=== PATIENT | male | born 1955 | race Caucasian/White ===

== ENCOUNTER 2024-07-26 06:37 | Inpatient (IN) | payer MEDICARE, OTHER ==
[~2024-07-26] VITALS: Ht 167.6 cm; Wt 75.3 kg
[2024-07-26] MEDS ORDERED: FOLI0.8T23 PO (06:54)
[2024-07-26] MEDS ORDERED: MIDO10TA PO (06:54)
[2024-07-26] MEDS ORDERED: CINA30TA2 PO (06:54)
[2024-07-26] MEDS ORDERED: RIVA15TA PO (06:54)
[2024-07-26] MEDS ORDERED: CETI10CA8 PO (06:54)
[2024-07-26] MEDS ORDERED: GABA-532 PO (06:54)
[2024-07-26] MEDS ORDERED: SOTA80TA26 PO (06:54)
[2024-07-26] MEDS ORDERED: CLOP75TA33 PO (06:54)
[2024-07-26] MEDS ORDERED: ATOR80TA PO (06:54)
[2024-07-26] MEDS ORDERED: PANT40TA49 PO (06:54)
[2024-07-26] MEDS ORDERED: TRAM50TA2 PO (06:54)
[2024-07-26] MEDS ORDERED: CYCL5TAB PO (06:54)
[2024-07-26] MEDS: IV NORMAL SALINE 500 ML BAG IV ONE (07:00)
[2024-07-26 08:13] LABS: ETHANOL < 3 MG/DL (0-10)
[2024-07-26 08:25] LABS: BASOPHILS # (AUTO) 0.1 K/UL (0.0-0.2); BASOPHILS % (AUTO) 0.8 % (0.0-2.0); EOSINOPHILS # (AUTO) 0.6 K/uL (0.0-0.7); EOSINOPHILS % (AUTO) 5.9 % (0.0-7.0); HEMATOCRIT 41.4 % (36.7-47.1); HEMOGLOBIN 13.5 g/dL (12.5-16.3); LYMPHOCYTES # (AUTO) 1.5 K/uL (0.8-4.8); LYMPHOCYTES % (AUTO) 14.5 % (20.5-51.5); MEAN CORPUSCULAR HEMOGLOBIN 32.7 uug (23.8-33.4); MEAN CORPUSCULAR HGB CONC 33 g/dL (32.5-36.3); MEAN CORPUSCULAR VOLUME 100.4 fL (73.0-96.2); MONOCYTES # (AUTO) 1.1 K/uL (0.1-1.30); MONOCYTES % (AUTO) 10.7 % (0.0-11.0); NEUTROPHILS # (AUTO) 6.9 K/uL (1.8-8.9); NEUTROPHILS % (AUTO) 68.1 % (38.5-71.5); PLATELET COUNT (AUTO) 237 K/uL (152-348); RED BLOOD CELL COUNT(AUTO) 4.13 MIL/uL (4.06-5.63); RED CELL DISTRIBUTION WIDTH 14.1 % (12.1-16.2); WHITE BLOOD COUNT (AUTO) 10.1 K/uL (3.6-10.2)
[2024-07-26 08:29] LABS: DIFFERENTIAL COMMENT 1
[2024-07-26 08:32] LABS: CALCIUM 7.6 mg/dL (8.5-10.1); CARBON DIOXIDE 23 mmol/L (21-32); CHLORIDE 101 mmol/L (98-107); GLUCOSE 99 mg/dL (74-106); SODIUM SERUM 143 mmol/L (136-145)
[2024-07-26 08:38] LABS: ALANINE AMINOTRANSFERASE 26 U/L (16-63); ALBUMIN 3.6 g/dL (3.4-5.0); ALKALINE PHOSPHATASE 227 U/L (50-136); ASPARTATE AMINOTRANSFERASE 19 U/L (15-37); BILIRUBIN,DIRECT 0.1 mg/dL (0.0-0.2); BILIRUBIN,TOTAL 0.6 mg/dL (0.2-1.0); TOTAL PROTEIN, SERUM 7.9 g/dL (6.4-8.2)
[2024-07-26 08:39] LABS: CREATININE 12.3 mg/dL (0.6-1.3); UREA NITROGEN, BLOOD 90 mg/dL (7-18)
[2024-07-26] MEDS ORDERED: CALCIUM GLUCONATE 1 GM/10 ML VIAL IV ONE (08:48)
[2024-07-26] MEDS ORDERED: SODIUM BICARBONATE 8.4% 50 MEQ/50 ML DISP.SYRIN IV ONE (08:49)
[2024-07-26] MEDS ORDERED: CALCIUM CHLORIDE 1 GM/10 ML DISP.SYRIN IVP ONE (08:54)
[2024-07-26] MEDS: SODIUM BICARBONATE 8.4% 50 MEQ/50 ML DISP.SYRIN IV ONE (08:59)
[2024-07-26] MEDS: CALCIUM CHLORIDE 1 GM/10 ML DISP.SYRIN IVP ONE (09:00)
[2024-07-26 09:05] VITALS: O2SAT 99
[2024-07-26] MEDS: ALBUTEROL SULFATE 2.5 MG/3 ML NEBU NEB ONE (09:05)
[2024-07-26] MEDS ORDERED: ALBUTEROL SULFATE 2.5 MG/3 ML NEBU ONE (09:08)
[2024-07-26 09:46] LABS: THYROID STIMULATING HORMONE 1.32 mIU/mL (0.358-3.740)
[2024-07-26 09:47] LABS: MAGNESIUM 2.5 mg/dL (1.8-2.4); PHOSPHOROUS 6.1 mg/dL (2.5-4.9)
[2024-07-26 10:05] VITALS: O2SAT 100; O2SAT 99
[2024-07-26] MEDS ORDERED: SOTA80TA PO (11:31)
[2024-07-26 12:00] VITALS: BP 111/61; TEMP 98.7; O2SAT 98
[2024-07-26] MEDS ORDERED: GABA300C PO (12:22)
[2024-07-26] MEDS ORDERED: LORAZEPAM 2 MG/1 ML VIAL IV PRN ×3 (12:30→12:58)
[2024-07-26] MEDS ORDERED: NITR0.4T48 SL (12:33)
[2024-07-26] MEDS ORDERED: ACET-2605 PO (12:38)
[2024-07-26] MEDS ORDERED: SEVE800T8 PO (13:39)
[2024-07-26 15:55] VITALS: BP 116/42; TEMP 98.3; O2SAT 96
[2024-07-26] MEDS ORDERED: Medication Not On Formulary EA (Midodrine Hcl 10 MG) PO PRN (18:00)
[2024-07-26] MEDS ORDERED: NITROGLYCERIN 0.4 MG/TAB BOTTLE SL PRN (18:00)
[2024-07-26] MEDS: RIVAROXABAN 15 MG TABLET PO SCH (18:25)
[2024-07-26] MEDS: GABAPENTIN 300 MG CAPSULE PO SCH (18:25)
[2024-07-26 20:35] VITALS: BP 116/47; TEMP 97.8; O2SAT 97
[2024-07-26] MEDS ORDERED: DOCUSATE SODIUM 250 MG CAPSULE PO SCH (21:00)
[2024-07-26] MEDS ORDERED: levETIRAcetam 250 MG TABLET PO SCH (21:00)
[2024-07-26] MEDS: LACOSAMIDE 200 MG in IV NORMAL SALINE 100 ML IV ONE (21:00)
[2024-07-26] MEDS: TRAMADOL HCL 50 MG TABLET PO SCH (21:45)
[2024-07-26] MEDS: DOCUSATE SODIUM 100 MG CAPSULE PO SCH (21:46)
[2024-07-26] MEDS ORDERED: LACOSAMIDE 50 MG TABLET ONE (22:16)
[2024-07-27] MEDS: LACOSAMIDE 50 MG TABLET PO ONE (00:15)
[2024-07-27 00:27] VITALS: BP 100/43; TEMP 97.9; O2SAT 97
[2024-07-27 04:20] VITALS: BP 96/58; TEMP 97.7; O2SAT 95
[2024-07-27] MEDS: MIDODRINE HCL 5 MG TABLET PO PRN (05:19)
[2024-07-27 07:45] VITALS: BP 105/33; TEMP 97.6; O2SAT 98
[2024-07-27 07:52] LABS: BASOPHILS # (AUTO) 0.1 K/UL (0.0-0.2); BASOPHILS % (AUTO) 0.7 % (0.0-2.0); EOSINOPHILS # (AUTO) 0.4 K/uL (0.0-0.7); EOSINOPHILS % (AUTO) 4.2 % (0.0-7.0); HEMATOCRIT 35.2 % (36.7-47.1); HEMOGLOBIN 11.7 g/dL (12.5-16.3); LYMPHOCYTES % (AUTO) 9.7 % (20.5-51.5); MEAN CORPUSCULAR HEMOGLOBIN 33.2 uug (23.8-33.4); MEAN CORPUSCULAR HGB CONC 33 g/dL (32.5-36.3); MEAN CORPUSCULAR VOLUME 99.5 fL (73.0-96.2); MONOCYTES # (AUTO) 0.9 K/uL (0.1-1.30); MONOCYTES % (AUTO) 9.2 % (0.0-11.0); NEUTROPHILS # (AUTO) 7.7 K/uL (1.8-8.9); NEUTROPHILS % (AUTO) 76.2 % (38.5-71.5); PLATELET COUNT (AUTO) 226 K/uL (152-348); RED BLOOD CELL COUNT(AUTO) 3.54 MIL/uL (4.06-5.63); RED CELL DISTRIBUTION WIDTH 13.9 % (12.1-16.2)
[2024-07-27 07:59] LABS: DIFFERENTIAL COMMENT 1
[2024-07-27] MEDS: LACOSAMIDE 200 MG in IV NORMAL SALINE 100 ML IV ONE (08:03)
[2024-07-27 08:37] LABS: ALBUMIN 3.2 g/dL (3.4-5.0); BILIRUBIN,TOTAL 0.5 mg/dL (0.2-1.0); MAGNESIUM 2.1 mg/dL (1.8-2.4); PHOSPHOROUS 4.4 mg/dL (2.5-4.9); POTASSIUM 4.4 mmol/L (3.5-5.1); TOTAL PROTEIN, SERUM 6.9 g/dL (6.4-8.2)
[2024-07-27 08:41] LABS: CREATININE 9.8 mg/dL (0.6-1.3)
[2024-07-27] MEDS ORDERED: LACOSAMIDE 100 MG in IV NORMAL SALINE 50 ML IV SCH ×2 (09:00→20:00)
[2024-07-27] MEDS ORDERED: Medication Not On Formulary EA (Cyclobenzaprine Hcl 5 MG) PO SCH (09:00)
[2024-07-27] MEDS: CINACALCET HCL 30 MG TABLET PO SCH (09:23)
[2024-07-27] MEDS: CLOPIDOGREL 75 MG TABLET PO SCH (09:24)
[2024-07-27] MEDS: PANTOPRAZOLE SODIUM 40 MG TABLET.DR PO SCH (09:24)
[2024-07-27] MEDS: CYCLOBENZAPRINE HCL 10 MG TABLET PO SCH (09:24)
[2024-07-27 12:00] VITALS: BP 92/46; TEMP 97.6; O2SAT 96
[2024-07-27] MEDS: SEVELAMER CARBONATE 800 MG TABLET PO SCH (12:55)
[2024-07-27] MEDS: CLOTRIMAZOLE/BETAMET DIPROP CREAM 15 GM TUBE TOP SCH (13:05)
[2024-07-27 16:00] VITALS: BP 106/37; TEMP 97.6; O2SAT 97
[2024-07-27 19:41] VITALS: BP 111/48; TEMP 97.7; O2SAT 99
[2024-07-27] MEDS: LACOSAMIDE 50 MG TABLET PO SCH (20:33)
[2024-07-28] VITALS (7 sets, daily range): BP systolic 93–123; BP diastolic 43–65; TEMP 97.5–98; O2SAT 96–100
[2024-07-28 06:11] LABS: HEPATITIS B CORE AB, TOTAL Negative (Negative); HEPATITIS B SURFACE AG Negative (Negative)
[2024-07-28] MEDS: ARGININE/GLUTAMINE/CALCIUM BMB 1 EACH POWD.PACK PO SCH (09:31)
[2024-07-28] MEDS: FOLIC ACID/VITAMIN B COMP W-C TABLET PO SCH (09:32)
[2024-07-28] MEDS: ONDANSETRON 4 MG/2 ML VIAL IV PRN (12:22)
[2024-07-29 04:00] VITALS: BP 99/56; TEMP 98.1; O2SAT 100
[2024-07-29] MEDS: ACETAMINOPHEN 325 MG TABLET PO PRN (05:05)
[2024-07-29 07:25] LABS: BASOPHILS % (AUTO) 0.6 % (0.0-2.0); EOSINOPHILS # (AUTO) 0.5 K/uL (0.0-0.7); EOSINOPHILS % (AUTO) 6.2 % (0.0-7.0); HEMATOCRIT 35.6 % (36.7-47.1); HEMOGLOBIN 11.9 g/dL (12.5-16.3); LYMPHOCYTES # (AUTO) 0.8 K/uL (0.8-4.8); LYMPHOCYTES % (AUTO) 10.1 % (20.5-51.5); MEAN CORPUSCULAR HEMOGLOBIN 32.9 uug (23.8-33.4); MEAN CORPUSCULAR HGB CONC 33 g/dL (32.5-36.3); MEAN CORPUSCULAR VOLUME 98.4 fL (73.0-96.2); MONOCYTES # (AUTO) 0.9 K/uL (0.1-1.30); MONOCYTES % (AUTO) 10.7 % (0.0-11.0); NEUTROPHILS # (AUTO) 5.8 K/uL (1.8-8.9); NEUTROPHILS % (AUTO) 72.4 % (38.5-71.5); PLATELET COUNT (AUTO) 181 K/uL (152-348); RED BLOOD CELL COUNT(AUTO) 3.62 MIL/uL (4.06-5.63); RED CELL DISTRIBUTION WIDTH 13.7 % (12.1-16.2)
[2024-07-29 07:38] LABS: DIFFERENTIAL COMMENT 1; MAGNESIUM 2.1 mg/dL (1.8-2.4); PHOSPHOROUS 4.3 mg/dL (2.5-4.9)
[2024-07-29 07:39] LABS: CREATININE 7.9 mg/dL (0.6-1.3)
[2024-07-29 07:58] VITALS: BP 102/59; TEMP 97.6; O2SAT 97
[2024-07-29 12:00] VITALS: BP 103/39; TEMP 97.5; O2SAT 97
[2024-07-29] MEDS: MIRALAX 17 GM POWD.PACK PO ONE (13:50)
[2024-07-29] MEDS ORDERED: NUTR1PAC14 PO (14:40)
[2024-07-29] MEDS ORDERED: ATOR20TA PO (14:40)
[2024-07-29] MEDS ORDERED: LACO50TA2 PO (14:40)
[2024-07-29] MEDS ORDERED: ACET325T53 PO (14:40)
[2024-07-29 16:34] VITALS: BP 116/40; TEMP 97.7; O2SAT 98
== END 2024-07-29 17:40 | disposition home health service (06) | DRG 100 ==
LOC: ER 06:40 → TELE3 11:09 → MEDSURG3 07-29 10:45
PROVIDERS: ADMIT Internal Medicine; ATTEND Internal Medicine
PROC: 05H933Z Insertion of Infusion Device into Right Brachial Vein, Percutaneous Approach (ICD-10-PCS; principal; 2024-07-26)
PROC: 5A1D70Z Performance of Urinary Filtration, Intermittent, Less than 6 Hours Per Day (ICD-10-PCS; 2024-07-28)
DX: R56.9 Unspecified convulsions (principal); I50.31 Acute diastolic (congestive) heart failure; N17.0 Acute kidney failure with tubular necrosis; N18.6 End stage renal disease; I69.351 Hemiplegia and hemiparesis following cerebral infarction affecting right dominant side; D68.59 Other primary thrombophilia; I13.2 Hypertensive heart and chronic kidney disease with heart failure and with stage 5 chronic kidney disease, or end stage renal disease; G25.3 Myoclonus; E87.5 Hyperkalemia; D63.1 Anemia in chronic kidney disease; I69.398 Other sequelae of cerebral infarction; G93.89 Other specified disorders of brain; S61.203A Unspecified open wound of left middle finger without damage to nail, initial encounter; X58.XXXA Exposure to other specified factors, initial encounter; Y92.009 Unspecified place in unspecified non-institutional (private) residence as the place of occurrence of the external cause; E78.5 Hyperlipidemia, unspecified; G56.02 Carpal tunnel syndrome, left upper limb; B35.3 Tinea pedis; I35.8 Other nonrheumatic aortic valve disorders; E66.3 Overweight; M20.42 Other hammer toe(s) (acquired), left foot; M20.41 Other hammer toe(s) (acquired), right foot; S91.312A Laceration without foreign body, left foot, initial encounter; K21.9 Gastro-esophageal reflux disease without esophagitis; Z79.01 Long term (current) use of anticoagulants; Z88.0 Allergy status to penicillin; Z99.2 Dependence on renal dialysis; Z88.2 Allergy status to sulfonamides; Z74.09 Other reduced mobility; Z68.26 Body mass index [BMI] 26.0-26.9, adult
CPT/HCPCS: 36415; 70450; 71045; 83550; 83735; 84100; 84443; 85025; 86704; 87340; 90937; 93307; 95819; A4663; G0378; G0480; J0610; J2405; J3490